=== PATIENT | female | born 1990 | race Caucasian/White ===

== ENCOUNTER 2016-12-10 08:07 | Outpatient (CLI) | payer OTHER ==
--- NOTE | 2016-12-10 10:04 | DIAGNOSTIC IMAGING REPORT ---
PROCEDURE: US ABDOMEN ULTRASOUND-COMPLETE INDICATION: RUQ PAIN TECHNIQUE: Ceja scale and color Doppler sonographic images of the abdomen were obtained without comparison. COMPARISON: Abdominal ultrasound 07/11/2016 FINDINGS: The liver is normal in size, contour, and echotexture. No mass or intrahepatic biliary dilatation. The gallbladder is normal without stones or sludge. The wall is normal thickness measuring 1.4 mm No pericholecystic fluid or Humphries sign. The common bile duct near the head of the pancreas measures 4.4 mm. The extrahepatic common duct is normal measuring 3.3 mm The visualized pancreas is normal without ductal dilatation or peripancreatic fluid collection. The abdominal aorta is normal in its course and caliber. The retrohepatic inferior vena cava is patent. There is appropriate hepatopetal flow in the portal vein. The right kidney measures 10.3 cm in length. The left kidney measures 10.4 cm in length. Both kidneys demonstrate normal morphology and cortical thickness without hydronephrosis, cyst, solid mass, or shadowing calculus. Color Doppler imaging demonstrates normal blood flow in each kidney. The spleen is normal in size measuring 9.6 cm in length. There is no perihepatic or perisplenic ascites. heart rate 153 beats per minute IMPRESSION: 1. Normal abdominal ultrasound.
== END 2016-12-10 23:00 ==
LOC: US SRH 08:07
DX: R10.11 Right upper quadrant pain (principal)

== ENCOUNTER 2016-12-22 12:10 | Outpatient (CLI) | payer OTHER ==
--- NOTE | 2016-12-22 14:17 | DIAGNOSTIC IMAGING REPORT ---
PROCEDURE: US OB DETAILED ANATOMIC INDICATION: ANATOMY TECHNIQUE: Ceja scale, color, and spectral Doppler images of the second trimester gravid uterus were obtained. COMPARISON: None. FINDINGS: A single living intrauterine is in vertex presentation. There is regular cardiac activity at a rate of 145 beats per minute. The placenta is posterior and away from the internal cervical os. The cervix is closed measuring approximately 3.3 cm in length. The amniotic fluid volume is subjectively normal. Biparietal diameter 5 cm at 21 weeks and 1 day Head circumference 18.9 cm at 21 weeks and 1 day Abdominal circumference 15.9 cm at 21 weeks and 0-day Femur length 3.3 cm at 20 weeks and 3 days Head to abdominal circumference ratio and femur length to abdominal circumference ratios are normal. Estimated weight 380 g Composite gestational age 21 weeks and 0 days BHUMI 05/04/2017 There was visualization of a number of normal structures including the intracranial contents, facial features, nuchal region, spine, four-chamber heart and outflow tracts to the extent that could be visualized, diaphragm, fluid-filled stomach, kidneys, abdomen, urinary bladder, upper and lower extremities, and genitals. A three-vessel umbilical cord, normal and placental cord insertion sites were seen. IMPRESSION: 1. Single living intrauterine with a composite gestational age of 21 weeks 0 days, BHUMI 05/04/2017 2. Symmetric and normal anatomy. 3. Size greater than dates by 0 weeks and 5 days
== END 2016-12-22 23:00 ==
LOC: US SRH 12:10
DX: Z34.02 Encounter for supervision of normal first pregnancy, second trimester (principal); Z3A.21 21 weeks gestation of pregnancy

== ENCOUNTER 2017-02-02 12:22 | Outpatient (CLI) | payer OTHER | END 2017-02-02 23:00 | LOC: LAB SRH 12:22 | DX: Z34.02 Encounter for supervision of normal first pregnancy, second trimester (principal) | CPT/HCPCS: 90039; 90074; 91162; 91163 ==

== ENCOUNTER 2017-02-18 08:42 | Outpatient (CLI) | payer OTHER | END 2017-02-18 23:00 | LOC: LAB SRH 08:42 | DX: Z34.82 Encounter for supervision of other normal pregnancy, second trimester (principal) | CPT/HCPCS: 90074; 92652 ==

== ENCOUNTER 2017-04-25 20:10 | Outpatient (CLI) | payer OTHER ==
[2017-04-25] MEDS ORDERED: PRENATAL1 TAB PO (21:21)
[2017-04-25] MEDS ORDERED: TUMS500 MG PO (21:21)
== END 2017-04-25 23:05 | disposition home or self-care (01) ==
LOC: OB SRH 20:10 → OBC SRH 20:10 → OB SRH 20:12 → OBC SRH 23:05
DX: O47.1 False labor at or after 37 completed weeks of gestation (principal); Z3A.38 38 weeks gestation of pregnancy

== ENCOUNTER 2017-04-26 23:25 | Inpatient (IN) | payer OTHER ==
[~2017-04-26] VITALS: Ht 170.2 cm; Wt 72.6 kg
[~2017-04-26 23:25] MED LIST: PRENATAL1 TAB PO; TUMS500 MG PO
[2017-04-27 00:30] VITALS: BP 120/70
[2017-04-27 07:40] VITALS: BP 116/56
[2017-04-27 11:20] VITALS: BP 100/51
[2017-04-27 16:00] VITALS: BP 104/51
[2017-04-27 20:00] VITALS: BP 113/53
[2017-04-28 00:40] VITALS: BP 112/61
[2017-04-28 08:25] VITALS: BP 119/56
--- NOTE | 2017-04-28 09:50 | Provider's Discharge Care Plan ---
Problem, Goal, Plan Problem List 1. Vaginal delivery Goals: Improve disease control Instructions: Follow up as needed
--- NOTE | 2017-04-28 09:50 | Provider's Discharge Care Plan ---
Problem, Goal, Plan Problem List 1. Vaginal delivery Goals: Improve disease control Instructions: Follow up as needed
--- NOTE | 2017-04-28 11:55 | NUR ---
Patient up ad orly, stable vitals, bonding well with baby, often and well, did have some questions about nursing so do do verble teaching, latch, postioning, dailt\y feeding log, what to expect and also encouragd to call senior telecommunications consultant for any questions or concerns. Usinf PEREZ pack for perineal and uterine discomfort, has tucks, dermaplast spray. Has good suport from family. F/U in 4-6 weeks.Dicharged to home with baby and SO in W/C at 1145. Discharge instructions given,
== END 2017-04-28 11:45 | disposition home or self-care (01) | DRG 560 ==
LOC: OBC SRH 23:25 → OB SRH 23:28 → OBC SRH 04-27 00:44 → OB SRH 04-27 00:47
PROVIDERS: ADMIT Obstetrics & Gynecology
PROC: 0UQMXZZ Repair Vulva, External Approach (ICD-10-PCS; principal; 2017-04-27)
PROC: 10E0XZZ Delivery of Products of Conception, External Approach (ICD-10-PCS; principal; 2017-04-27)
DX: O71.82 Other specified trauma to perineum and vulva (principal); Z37.0 Single live birth; O32.2XX0 Maternal care for transverse and oblique lie, not applicable or unspecified; Z3A.38 38 weeks gestation of pregnancy
CPT/HCPCS: 40010; 95059